=== PATIENT | female | born 1995 | race Caucasian/White ===

== ENCOUNTER 2018-07-09 21:14 | Emergency (ER) | payer OTHER ==
[~2018-07-09] VITALS: Ht 154.9 cm; Wt 45.5 kg
[2018-07-09 21:20] VITALS: TEMP 98
[2018-07-09 21:57] LABS: BASO # 0.1 (0.0-0.2); BASO % 0.4 % (0.0-2.0); EOS # 0.1 (0.0-0.7); EOS % 0.4 % (0-4.0); GRAN # 13.3 (1.4-6.5); GRAN % 80.3 % (42.2-75.2); HEMOGLOBIN 12.6 g/dl (12.5-16.0); LYMPH # 2.4 (1.2-3.4); LYMPH % 14.4 % (20.0-51.0); MEAN CELL VOLUME 91 fl (80.0-100.0); MEAN CORPUSCULAR HEMOGLOBIN 31 pg (27.0-31.0); MEAN CORPUSCULAR HGB CONC 34 g/dl (33.0-37.0); MEAN PLATELET VOLUME 9.6 fl (7.4-10.4); MONO # 0.7 (0.1-0.6); MONO % 4.1 % (1.7-9.3); PLATELET COUNT 260 K/mm3 (130-400); RED BLOOD COUNT 4.04 M/mm3 (4.10-5.30); REDCELL DISTRIBUTION WIDTH-CV 12.4 % (11.5-14.5)
[2018-07-09 22:04] LABS: HEMATOCRIT 36.7 % (37.0-47.0)
[2018-07-09 22:10] LABS: ALBUMIN 4.2 gm/dL (3.5-5.0); BILIRUBIN,TOTAL 0.4 mg/dL (0.0-1.0); CALCIUM 9.2 mg/dL (8.4-10.2); CREATININE, serum 0.63 mg/dL (0.52-1.25); TOTAL PROTEIN 7.6 gm/dL (6.4-8.2)
[2018-07-09 22:15] LABS: POTASSIUM 2.8 mmol/L (3.4-5.0)
[2018-07-09] MEDS ORDERED: K-DUR20 MEQ PO (23:09)
[2018-07-09 23:23] VITALS: BP 123/84; PULSE 97
== END 2018-07-09 23:23 | disposition home or self-care (01) ==
LOC: COL.ER 21:14
PROVIDERS: Emergency Medicine
DX: E87.6 Hypokalemia (principal)
CPT/HCPCS: C9113; J0780